=== PATIENT | male | born 1955 | race African-American/Black ===

== ENCOUNTER → 2022-07-24 | Outpatient (CLI) | payer MEDICARE, MEDICAID | END | disposition home or self-care (01) | LOC: MRI 09:34 | PROVIDERS: ATTEND Internal Medicine | DX: M48.02 Spinal stenosis, cervical region (principal); M50.322 Other cervical disc degeneration at C5-C6 level; M47.812 Spondylosis without myelopathy or radiculopathy, cervical region; M25.78 Osteophyte, vertebrae | CPT/HCPCS: 72141 ==

== ENCOUNTER → 2022-08-12 | Outpatient (CLI) | payer MEDICARE, MEDICAID | END | disposition home or self-care (01) | LOC: CT 08:46 | PROVIDERS: ATTEND Neurological Surgery | DX: I67.82 Cerebral ischemia (principal); R90.82 White matter disease, unspecified; I63.9 Cerebral infarction, unspecified; G93.89 Other specified disorders of brain ==

== ENCOUNTER 2022-10-29 08:57 | Inpatient (IN) | payer MEDICARE, MEDICAID ==
[~2022-10-29] VITALS: Ht 170.2 cm; Wt 65.8 kg
[2022-10-29] VITALS (23 sets, daily range): BP systolic 83–146; BP diastolic 39–115
[2022-10-29 09:57] LABS: CLARITY URINE CLEAR (CLEAR); COLOR URINE YELLOW (YELLOW); KETONES URINE NEGATIVE (NEGATIVE); LEUKOCYTE ESTERASE URINE NEGATIVE (NEGATIVE); NITRITE URINE NEGATIVE (NEGATIVE); OCCULT BLOOD URINE NEGATIVE (NEGATIVE); PH URINE 5.5 (4.5-8.0); PROTEIN URINE NEGATIVE (NEGATIVE); SPECIFIC GRAVITY URINE 1.021 (1.005-1.030)
[2022-10-29 09:58] LABS: BASOPHILS % 0.9 % (0.0-2.0); EOSINOPHILS % 8.9 % (0.0-5.0); HEMATOCRIT. 34.4 % (42.0-52.0); HEMOGLOBIN. 11.4 g/dL (14.0-18.0); MEAN CORPUSCULAR VOLUME 90.5 fL (80.0-94.0); MEAN PLATELET VOLUME 7.9 fl (7.4-10.4); MONOCYTES % 14.4 % (2.0-8.0); NEUTROPHILS % 44.8 % (40.0-76.0); PLATELET 228 x1000/uL (130-400); RED CELL DISTRIBUTION WIDTH 13.6 % (11.6-14.6)
[2022-10-29 10:03] LABS: CHLORIDE 107 mEq/L (98-107)
[2022-10-29 10:08] LABS: PARTIAL THROMBOPLASTIN TIME 33.6 sec (23.4-31.0); PROTHROMBIN TIME 11.2 sec (9.6-11.0)
[2022-10-29] MEDS ORDERED: SODIUM CHLORIDE 0.9% 1,000 ML IV SCH (10:45)
[2022-10-29] MEDS ORDERED: GENTAMICIN SULF 40MG/ML 2ML VIAL ONE (11:38)
[2022-10-29] MEDS ORDERED: LIDOCAINE HCL/EPINEPHRINE 1%-EPI 1:100,000 20 ML VIAL ONE (11:38)
[2022-10-29] MEDS ORDERED: THROMBIN (BOVINE) 5000 UNITS/VIAL TOP ONE (11:38)
[2022-10-29] MEDS ORDERED: CEFAZOLIN SODIUM 1000MG/VIAL ONE (12:32)
[2022-10-29] MEDS ORDERED: DEXAMETHASONE 4MG/ML 1ML VIAL ONE (12:32)
[2022-10-29] MEDS ORDERED: ONDANSETRON HCL 4MG/2ML INJ ONE (12:32)
[2022-10-29] MEDS ORDERED: SUCCINYLCHOLINE CHLORIDE 200MG/10ML IV ONE (12:32)
[2022-10-29] MEDS ORDERED: GLYCOPYRROLATE 0.2 MG/ML 2ML VIAL ONE ×2 (12:33→12:34)
[2022-10-29] MEDS ORDERED: PROPOFOL 200MG/20ML VIAL IV ONE (12:33)
[2022-10-29] MEDS ORDERED: NEOSTIGMINE METHYLSULFATE 1MG/ML 10 ML VIAL ONE (12:33)
[2022-10-29] MEDS ORDERED: ROCURONIUM BROMIDE 10MG/ML VIAL 5ML IV ONE (12:33)
[2022-10-29] MEDS ORDERED: FENTANYL CITRATE/PF 50MCG/ML 2ML VIAL ONE (12:34)
[2022-10-29] MEDS ORDERED: MIDAZOLAM HCL 2 MG/2 ML VIAL ONE (12:34)
[2022-10-29] MEDS ORDERED: HYDROMORPHONE HCL/PF 2MG/ML CPJ ONE ×2 (13:38→14:39)
[2022-10-29] MEDS ORDERED: LISI40TA13 PO (13:44)
[2022-10-29] MEDS ORDERED: ATOR20TA65 PO (13:44)
[2022-10-29] MEDS ORDERED: AMLO10TA80 PO (13:44)
[2022-10-29] MEDS ORDERED: POTA10TA2 PO (13:44)
[2022-10-29] MEDS ORDERED: ASPI-986 PO (13:44)
[2022-10-29] MEDS ORDERED: AMIT-187 PO (13:44)
[2022-10-29] MEDS ORDERED: MINO2.5T2 PO (13:44)
[2022-10-29] MEDS ORDERED: HYDR25TA PO (13:44)
[2022-10-29] MEDS ORDERED: DOXA4TAB3 PO (13:44)
[2022-10-29] MEDS ORDERED: CELE-84 PO (13:44)
[2022-10-29] MEDS ORDERED: LABETALOL 5MG/ML SYR 20 MG/4 ML SYRINGE IV PRN (13:45)
[2022-10-29] MEDS ORDERED: HYDROMORPHONE HCL/PF 2MG/ML CPJ IV PRN (13:45)
[2022-10-29] MEDS ORDERED: MEPERIDINE HCL/PF 25MG/ML CPJ IV PRN (13:45)
[2022-10-29] MEDS ORDERED: ONDANSETRON HCL 4MG/2ML INJ IV PRN (13:45)
[2022-10-29] MEDS ORDERED: HYDRALAZINE 20MG/ML VIAL ONE (14:22)
[2022-10-29] MEDS ORDERED: LABETALOL HCL 5MG/ML VIAL 20ML IV ONE (14:38)
[2022-10-29] MEDS ORDERED: NALOXONE HCL 0.4MG/ML VIAL IV PRN (15:00)
[2022-10-29] MEDS ORDERED: EPHEDRINE SULFATE 50MG/ML VIAL ONE (15:01)
[2022-10-29] MEDS: DEXT 5%/LACTATED RINGERS 1,000 ML IV SCH (15:40)
[2022-10-29] MEDS: NICARDIPINE 100 MG in SODIUM CHLORIDE 0.9% 60 ML IV PRN (15:41)
[2022-10-29] MEDS ORDERED: ALBUTEROL (0.083%) 2.5MG/3ML NEB HHN PRN (16:45)
[2022-10-29] MEDS: DEXAMETHASONE 4MG/ML 1ML VIAL IV SCH (18:44)
[2022-10-29] MEDS ORDERED: CEFAZOLIN SODIUM 1000MG/VIAL IV SCH (22:00)
[2022-10-29] MEDS: CEFAZOLIN 1000MG PREMIX 50 ML IV SCH (22:04)
[2022-10-30] VITALS (87 sets, daily range): BP systolic -2–212; BP diastolic -2–209
[2022-10-30] MEDS: MORPHINE SULFATE 4 MG/ML CPJ (NOT FOR IM USE) IV PRN ×6 (00:59→21:31)
[2022-10-30] MEDS: DEXAMETHASONE 4MG/ML 1ML VIAL IV SCH ×4 (00:59→17:57)
[2022-10-30] MEDS: DEXT 5%/LACTATED RINGERS 1,000 ML IV SCH ×3 (00:59→20:13)
[2022-10-30] MEDS: CEFAZOLIN 1000MG PREMIX 50 ML IV SCH ×3 (05:53→21:07)
[2022-10-30] MEDS: NICARDIPINE 100 MG in SODIUM CHLORIDE 0.9% 60 ML IV PRN (11:55)
[2022-10-30] MEDS: AMLODIPINE 10MG TABLET PO SCH (11:56)
[2022-10-30] MEDS: MINOXIDIL 2.5MG TABLET PO SCH (11:57)
[2022-10-30] MEDS: HYDROCHLOROTHIAZIDE 25MG TABLET PO SCH ×2 (13:00→14:22)
[2022-10-31] VITALS (26 sets, daily range): BP systolic 118–171; BP diastolic 55–86
[2022-10-31] MEDS: MORPHINE SULFATE 4 MG/ML CPJ (NOT FOR IM USE) IV PRN ×5 (01:53→21:46)
[2022-10-31] MEDS: DEXT 5%/LACTATED RINGERS 1,000 ML IV SCH (07:23)
[2022-10-31] MEDS: MINOXIDIL 2.5MG TABLET PO SCH (08:44)
[2022-10-31] MEDS: AMLODIPINE 10MG TABLET PO SCH (08:44)
[2022-10-31] MEDS: HYDROCHLOROTHIAZIDE 25MG TABLET PO SCH (08:44)
[2022-10-31] MEDS ORDERED: CLONIDINE 0.2MG TABLET PO PRN (13:00)
[2022-11-01] VITALS: BP 159/76
[2022-11-01 08:00] VITALS: BP 131/59
[2022-11-01] MEDS: MINOXIDIL 2.5MG TABLET PO SCH ×2 (08:12→13:07)
[2022-11-01] MEDS: AMLODIPINE 10MG TABLET PO SCH (08:12)
[2022-11-01 12:24] VITALS: BP 150/87
[2022-11-01] MEDS: LACTULOSE 20G/30ML UDC PO SCH ×2 (15:15→21:48)
[2022-11-01 16:00] VITALS: BP 148/95
[2022-11-01 20:00] VITALS: BP 140/86
[2022-11-02] VITALS: BP 159/81
[2022-11-02 04:00] VITALS: BP 152/90
[2022-11-02 08:00] VITALS: BP 156/92
[2022-11-02] MEDS: AMLODIPINE 10MG TABLET PO SCH (08:24)
[2022-11-02] MEDS: MINOXIDIL 2.5MG TABLET PO SCH (08:38)
[2022-11-02 09:56] VITALS: BP 156/92
[2022-11-02 12:00] VITALS: BP 157/90
[2022-11-02 15:58] VITALS: BP 156/88
== END 2022-11-02 17:30 | disposition home or self-care (01) | DRG 471 ==
LOC: OR 08:57 → MICUNO 15:13 → 6EST 10-31 11:40
PROVIDERS: ADMIT Internal Medicine; ATTEND Internal Medicine
PROC: 0RG2071 Fusion of 2 or more Cervical Vertebral Joints with Autologous Tissue Substitute, Posterior Approach, Posterior Column, Open Approach (ICD-10-PCS; principal; 2022-10-29)
PROC: 00NW0ZZ Release Cervical Spinal Cord, Open Approach (ICD-10-PCS; 2022-10-29)
PROC: 4A11X4G Monitoring of Peripheral Nervous Electrical Activity, Intraoperative, External Approach (ICD-10-PCS; 2022-10-29)
DX: M48.02 Spinal stenosis, cervical region (principal); G82.50 Quadriplegia, unspecified; G99.2 Myelopathy in diseases classified elsewhere; M54.12 Radiculopathy, cervical region; I10 Essential (primary) hypertension; E78.00 Pure hypercholesterolemia, unspecified; F17.210 Nicotine dependence, cigarettes, uncomplicated; Z86.73 Personal history of transient ischemic attack (TIA), and cerebral infarction without residual deficits
CPT/HCPCS: 36415; 71045; 72040; 72141; 76000; 80048; 81003; 85025; 86850; 86900; 87426; 88311; 93005; 93970; 94002; 97116; 97162; 97166; 97530; J0330; J0360; J0690; J1100; J1170; J1580; J2250; J2270; J2405; J2704; J2710; J3010; J3490; J7050; J7121; L0172; C1713

== ENCOUNTER 2023-02-18 11:23 | Emergency (ER) | payer MEDICARE, MEDICAID ==
[~2023-02-18] VITALS: Ht 170.2 cm; Wt 70.0 kg
[~2023-02-18 11:23] MED LIST: AMIT25TA10 PO; AMLO10TA80 PO; ASPI-986 PO; ATOR20TA65 PO; CELE-84 PO; DOXA4TAB3 PO; HYDR25TA PO; LISI40TA13 PO; MINO2.5T2 PO; POTA10TA2 PO
[2023-02-18 12:26] LABS: BASOPHILS % 0.9 % (0.0-2.0); HEMATOCRIT. 34.8 % (42.0-52.0); HEMOGLOBIN. 11.2 g/dL (14.0-18.0); LYMPHOCYTES % 29.1 % (20.0-50.0); MEAN CORPUSCULAR VOLUME 89.8 fL (80.0-94.0); MONOCYTES % 13.6 % (2.0-8.0); NEUTROPHILS % 50.4 % (40.0-76.0); RED BLOOD CELL COUNT 3.87 mill/uL (4.7-6.1); RED CELL DISTRIBUTION WIDTH 14.4 % (11.6-14.6)
[2023-02-18 12:41] LABS: CHLORIDE 111 mEq/L (98-107)
[2023-02-18 12:42] LABS: MEAN PLATELET VOLUME 8.9 fl (7.4-10.4); PLATELET 157 x1000/uL (130-400)
[2023-02-18 13:10] VITALS: BP 132/71
== END 2023-02-18 13:11 | disposition left against medical advice (07) ==
LOC: ER 11:23
DX: R53.1 Weakness (principal); R51.9 Headache, unspecified; I10 Essential (primary) hypertension; Z86.73 Personal history of transient ischemic attack (TIA), and cerebral infarction without residual deficits
CPT/HCPCS: 36415; 71045; 80053; 84484; 85025; 99284; 99285

== ENCOUNTER 2023-11-27 08:46 | Inpatient (IN) | payer MEDICARE, MEDICAID ==
[~2023-11-27] VITALS: Ht 167.6 cm; Wt 68.0 kg
[~2023-11-27 08:46] MED LIST changes: +CELE-116 PO; -CELE-84 PO; +POTA-216 PO; -POTA10TA2 PO
[2023-11-27 12:55] LABS: BASOPHILS % 0.9 % (0.0-2.0); EOSINOPHILS % 6.6 % (0.0-5.0); HEMATOCRIT. 31.6 % (42.0-52.0); HEMOGLOBIN. 10.6 g/dL (14.0-18.0); LYMPHOCYTES % 25.2 % (20.0-50.0); MEAN CORPUSCULAR HEMOGLOBIN 29.8 pg (28.0-32.0); MEAN CORPUSCULAR HGB CONC 33.5 g/dL (31.0-37.0); MEAN CORPUSCULAR VOLUME 89.1 fL (80.0-94.0); MEAN PLATELET VOLUME 7.6 fl (7.4-10.4); MONOCYTES % 14.6 % (2.0-8.0); NEUTROPHILS % 52.7 % (40.0-76.0); PLATELET 184 x1000/uL (130-400); RED BLOOD CELL COUNT 3.54 mill/uL (4.7-6.1); RED CELL DISTRIBUTION WIDTH 13.2 % (11.6-14.6); WHITE BLOOD COUNT 3.4 x1000/uL (4.5-11.0)
[2023-11-27] MEDS: HYDROCODONE/ACETAMINOPHEN 5/325MG TABLET PO STA (13:00)
[2023-11-27 13:16] LABS: ALANINE AMINOTRANSFERASE < 7 IU/L (10-49); ALBUMIN 3.9 g/dL (3.2-4.8); ASPARTATE AMINOTRANSFERASE 12 IU/L (<34); BILIRUBIN TOTAL 0.3 mg/dL (0.1-1.0); CALCIUM 9.3 mg/dL (8.7-10.4); CARBON DIOXIDE 27 mEq/L (21-32); CHLORIDE 110 mEq/L (98-107); CREATININE 1.4 mg/dL (0.6-1.3); GLUCOSE 76 mg/dL (70-105); PROTEIN TOTAL 6.4 g/dL (6.0-8.3); SODIUM 143 mEq/L (136-145); UREA NITROGEN BLOOD 15 mg/dL (9-23)
[2023-11-27 13:21] LABS: PROTHROMBIN TIME 11.3 sec (9.6-11.0)
[2023-11-27 14:00] LABS: CLARITY URINE CLEAR (CLEAR); COLOR URINE YELLOW (YELLOW); GLUCOSE URINE NEGATIVE (NEGATIVE); KETONES URINE NEGATIVE (NEGATIVE); LEUKOCYTE ESTERASE URINE NEGATIVE (NEGATIVE); NITRITE URINE NEGATIVE (NEGATIVE); OCCULT BLOOD URINE NEGATIVE (NEGATIVE); PH URINE 5.5 (4.5-8.0); PROTEIN URINE NEGATIVE (NEGATIVE); SPECIFIC GRAVITY URINE 1.024 (1.005-1.030)
[2023-11-27] MEDS: SODIUM CHLORIDE 0.9% 1,000 ML IV ONE (14:58)
[2023-11-27 20:00] VITALS: BP 151/71; PULSE 68; RESP 20; TEMP 97.9
[2023-11-27 20:15] VITALS: BP 151/71; PULSE 68; RESP 20; TEMP 97.9
[2023-11-27] MEDS ORDERED: ZOLPIDEM TARTRATE 5MG TABLET PO PRN (21:00)
[2023-11-27] MEDS ORDERED: HYDROCODONE/ACETAMINOPHEN 10/325MG TABLET PO PRN (21:00)
[2023-11-27] MEDS ORDERED: IPRATROPIUM/ALBUTEROL 0.5-3(2.5)MG/3ML NEB HHN PRN (21:00)
[2023-11-27] MEDS ORDERED: CLONIDINE 0.1MG TABLET PO PRN (21:00)
[2023-11-27] MEDS ORDERED: GUAIFENESIN 200MG/10ML SUGAR FREE UDC PO PRN (21:00)
[2023-11-27] MEDS ORDERED: MAGNESIUM/ALUMINUM HYDROXIDE/SIMETHICONE 30ML UDC PO PRN (21:00)
[2023-11-27] MEDS ORDERED: SENNOSIDES 8.6MG TABLET PO PRN (21:00)
[2023-11-27] MEDS ORDERED: ACETAMINOPHEN 325MG TABLET PO PRN ×2 (21:00)
[2023-11-27] MEDS ORDERED: ONDANSETRON HCL 4MG/2ML INJ IV PRN (21:00)
[2023-11-27] MEDS ORDERED: DIPHENHYDRAMINE 50MG/ML VIAL IV PRN (21:00)
[2023-11-27] MEDS ORDERED: NALOXONE HCL 0.4MG/ML VIAL IV PRN (21:30)
[2023-11-27] MEDS ORDERED: GABAPENTIN 300MG CAPSULE PO SCH (22:00)
[2023-11-27] MEDS: GABAPENTIN 300MG CAPSULE PO SCH (22:02)
[2023-11-27] MEDS: MINOXIDIL 2.5MG TABLET PO SCH (22:03)
[2023-11-27] MEDS: ATORVASTATIN CALCIUM 20MG TABLET PO SCH (22:03)
[2023-11-27] MEDS: ENOXAPARIN 40MG/0.4ML SYR SUBCUT SCH (22:04)
[2023-11-27] MEDS: SODIUM CHLORIDE 0.9% INJ 3ML FLUSH IVF SCH (22:10)
[2023-11-27 23:14] LABS: HEPATITIS B SURFACE ANTIGEN NEGATIVE (Negative); HEPATITIS C AB NON REACTIVE (Neg) (Negative)
[2023-11-28 04:00] VITALS: BP 134/72; PULSE 59; RESP 16; TEMP 97.1
[2023-11-28 08:00] VITALS: BP 136/74; PULSE 56; RESP 20; TEMP 98.2
[2023-11-28] MEDS: ASPIRIN 325MG EC TABLET PO SCH (09:19)
[2023-11-28] MEDS: DOCUSATE SODIUM 100MG CAPSULE PO SCH (09:22)
[2023-11-28] MEDS: LISINOPRIL 40MG TABLET PO SCH (09:23)
[2023-11-28] MEDS: AMLODIPINE 10MG TABLET PO SCH (10:23)
[2023-11-28 12:42] VITALS: BP 136/61; PULSE 61; RESP 20; TEMP 97.6
[2023-11-28 16:00] VITALS: BP 129/72; PULSE 75; RESP 18; TEMP 98.2
[2023-11-28] MEDS ORDERED: NALOXONE HCL 0.4MG/ML VIAL IV PRN (16:00)
[2023-11-28 20:00] VITALS: BP 157/81; PULSE 61; RESP 20; TEMP 97.6
[2023-11-29] VITALS: BP 129/75; PULSE 68; RESP 19; TEMP 97.6
[2023-11-29 04:00] VITALS: BP 136/67; PULSE 63; RESP 18; TEMP 97.4
[2023-11-29 08:00] VITALS: BP 128/76; PULSE 65; RESP 16; TEMP 97.8
[2023-11-29 12:00] VITALS: BP 148/75; PULSE 70; RESP 17; TEMP 97.7
[2023-11-29] MEDS: HYDROCODONE/ACETAMINOPHEN 5/325MG TABLET PO PRN (14:55)
[2023-11-29 16:00] VITALS: BP 140/72; PULSE 68; RESP 16; TEMP 97.3
[2023-11-29 16:21] VITALS: BP 140/72; PULSE 68; TEMP 97.3; O2SAT 100
== END 2023-11-29 18:30 | disposition home or self-care (01) | DRG 74 ==
LOC: ER 08:46 → EDBEDREQ 14:29 → 6WST 16:29 → EDBEDREQTM 16:31 → EDBEDREQ 16:31
PROVIDERS: ADMIT Internal Medicine; ATTEND Internal Medicine
DX: G62.9 Polyneuropathy, unspecified (principal); R53.1 Weakness; I10 Essential (primary) hypertension; M48.02 Spinal stenosis, cervical region; E78.00 Pure hypercholesterolemia, unspecified; Z87.891 Personal history of nicotine dependence; Z86.73 Personal history of transient ischemic attack (TIA), and cerebral infarction without residual deficits
CPT/HCPCS: 36415; 71045; 72040; 80053; 81003; 85025; 86705; 87340; 97162; 97166; 97535; 99285; J1650; J7030